=== PATIENT | female | born 1995 | race American Indian/Alaskan Native ===

== ENCOUNTER 2021-06-05 17:03 | Emergency (ER) | payer SELFPAY | END 2021-06-05 17:20 | disposition left against medical advice (07) | LOC: ED 17:03 | DX: L08.9 Local infection of the skin and subcutaneous tissue, unspecified (principal); Z53.21 Procedure and treatment not carried out due to patient leaving prior to being seen by health care provider ==

== ENCOUNTER 2021-07-15 13:49 | Emergency (ER) | payer SELFPAY ==
[2021-07-15 14:00] VITALS: BP 135/84
[2021-07-15] MEDS ORDERED: IBUPROFEN 600 MG TAB PO ONE (14:31)
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
== END 2021-07-15 15:50 | disposition home or self-care (01) ==
LOC: ED 13:49
DX: S62.623A Displaced fracture of middle phalanx of left middle finger, initial encounter for closed fracture (principal); X58.XXXA Exposure to other specified factors, initial encounter; Y93.89 Activity, other specified; Y92.89 Other specified places as the place of occurrence of the external cause; Y99.8 Other external cause status
CPT/HCPCS: 99283

== ENCOUNTER 2022-02-23 09:49 | Emergency (ER) | payer SELFPAY ==
[2022-02-23] MEDS ORDERED: TETANUS,DIPH,PERTUSS(ACELL) VACCINE 0.5 ML SYRINGE IM ONE (10:46)
[2022-02-23] MEDS ORDERED: ACETAMINOPHEN W/CODEINE 300-30 MG TAB PO ONE (10:47)
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
[2022-02-23 12:13] LABS: Hematocrit 29.4 % (30.3-42.9); Hemoglobin 8.9 gm/dl (10.1-14.3); Mean Corpuscular HGB Conc 30 % (30-34); Platelet Count 278 K/mm3 (140-440); Red Blood Count 4.96 M/mm3 (3.65-5.03)
[2022-02-23 12:16] LABS: Mean Corpuscular Volume 59 fl (79-97); Red Cell Distribution Width 21.8 % (13.2-15.2)
[2022-02-23 12:40] LABS: Mucus,Urine 3+ /HPF
[2022-02-23 12:42] LABS: Bilirubin,Urine Negative (Negative); Blood,Urine Negative (Negative); Color,Urine Straw (Yellow)
[2022-02-23 12:43] LABS: Urobilinogen,Urine < 2.0 mg/dL (<2.0)
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
[2022-02-23 14:32] VITALS: BP 148/88
== END 2022-02-23 14:32 | disposition home or self-care (01) ==
LOC: ED 09:49
DX: O20.8 Other hemorrhage in early pregnancy (principal); O23.41 Unspecified infection of urinary tract in pregnancy, first trimester; S61.412A Laceration without foreign body of left hand, initial encounter; N39.0 Urinary tract infection, site not specified; Z3A.12 12 weeks gestation of pregnancy; Y08.89XA Assault by other specified means, initial encounter; Y93.89 Activity, other specified; Y92.89 Other specified places as the place of occurrence of the external cause; Y99.8 Other external cause status
CPT/HCPCS: 36415; 76801; 76817; 81001; 84702; 85027; 87086; 90715; 99284

== ENCOUNTER 2022-05-26 13:07 | Emergency (ER) | payer MEDICAID ==
[2022-05-26 16:26] VITALS: BP 114/73
[2022-05-26] MEDS ORDERED: HYDROcodone/ACETAMINOPHEN 5-325 MG TAB PO ONE (16:36)
[2022-05-26] MEDS ORDERED: IBUPROFEN 800 MG TAB PO ONE (16:36)
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
== END 2022-05-26 16:56 | disposition home or self-care (01) ==
LOC: ED 13:07
DX: M54.6 Pain in thoracic spine (principal); K21.9 Gastro-esophageal reflux disease without esophagitis; Z90.49 Acquired absence of other specified parts of digestive tract; Z79.899 Other long term (current) drug therapy; Z98.890 Other specified postprocedural states; V87.7XXA Person injured in collision between other specified motor vehicles (traffic), initial encounter; Y93.89 Activity, other specified; Y92.488 Other paved roadways as the place of occurrence of the external cause; Y99.8 Other external cause status
CPT/HCPCS: 99282